=== PATIENT | female | born 1970 | race African-American/Black ===

== ENCOUNTER 2017-05-12 15:22 | Emergency (ER) | payer MEDICAID ==
[~2017-05-12] VITALS: Ht 162.6 cm; Wt 56.7 kg
[2017-05-12 16:52] LABS: Basophils # (auto) 0 uL; Eosinophils # (auto) 0 uL; Hemoglobin 13.4 g/dL (12.2-16.2); Lymphocytes # (auto) 1.8 uL; Neutrophils # (auto) 2.2 uL
[2017-05-12 17:01] LABS: Eosinophils % (auto) 0.9 % (0.0-7.0); Lymphocytes % (auto) 38.1 % (10.0-50.0); Monocytes % (auto) 11.8 % (0.0-12.0); Neutrophils % (auto) 48.2 % (37.0-80.0); White Blood Cell 4.6 10^3/uL (4.4-10.8)
[2017-05-12 17:02] LABS: Albumin 2.9 g/dL (3.4-5.0); BUN/Creatinine Ratio 14.7; Calcium 8.5 mg/dL (8.5-10.1); Hematocrit 43.3 % (36.0-46.0); Mean Corpuscular Hemoglobin 25.5 pg (28.0-32.0); Mean Corpuscular Volume 82.1 fL (80.0-100.0); Monocytes # (auto) 0.5 uL; Nucleated Red Blood Cells % 0.7 %; Platelet Count (auto) 260 10^3/uL (140-450); Potassium 3.9 mmol/L (3.5-5.1); Red Blood Cells 5.27 10^6/uL (4.0-5.20); Red Cell Distribution Width 14.6 % (11.8-14.3)
[2017-05-12 21:55] LABS: Urine Bacteria NONE SEEN /hpf (None Seen); Urine Blood TRACE /uL (Negative); Urine Mucus FEW (None Seen); Urine Specific Gravity 1.024 (1.001-1.035); Urine WBC 4 /hpf (0 - 5)
[2017-05-12 22:41] LABS: Urine Pregnacy Test Negative (Negative)
[2017-05-12 23:02] LABS: Alcohol, Urine < 3.0 mg/dL (0-5); Amphetamine Screen, Urine NEGATIVE (NEGATIVE); Barbiturate Scree,Urine NEGATIVE (NEGATIVE); Benzodiazephine Screen, Urine NEGATIVE (NEGATIVE); Cannabinoid Screen, Urine POSITIVE (NEGATIVE); Cocaine Screen, Urine NEGATIVE (NEGATIVE); Opiate Scree,Urine NEGATIVE (NEGATIVE); Phencyclidine Screen, Urine NEGATIVE (NEGATIVE)
[2017-05-13] MEDS ORDERED: cefTRIAXone 1GM/10ml IVPUSH 10 ML IV ONE (01:15)
[2017-05-13 01:52] VITALS: BP 139/66
== END 2017-05-13 03:08 | disposition home or self-care (01) ==
LOC: ER 15:30
DX: J45.901 Unspecified asthma with (acute) exacerbation (principal); J06.9 Acute upper respiratory infection, unspecified; I11.0 Hypertensive heart disease with heart failure; I50.9 Heart failure, unspecified; F17.210 Nicotine dependence, cigarettes, uncomplicated; F12.10 Cannabis abuse, uncomplicated
CPT/HCPCS: 36415; 71046; 80053; 80307; 81001; 81025; 85025; 93005; 96374

== ENCOUNTER 2019-03-21 19:14 | Emergency (ER) | payer MEDICAID ==
[~2019-03-21] VITALS: Ht 162.6 cm; Wt 67.3 kg
[2019-03-21 19:50] VITALS: BP 132/105
[2019-03-21] MEDS ORDERED: IPRATROPIUM BROM 0.5 MG/2.5ML INH SOL NEB ONE (20:45)
[2019-03-21] MEDS ORDERED: ALBUTEROL SULF 2.5 MG/0.5ML(0.5%) NEB SOLN NEB ONE (20:45)
[2019-03-21 20:51] LABS: Urine Bacteria NONE SEEN /hpf (None Seen); Urine Blood 1+ /uL (Negative); Urine Hyaline Cast MOD /lpf (0 - 2); Urine Mucus FEW (None Seen); Urine Specific Gravity 1.034 (1.001-1.035); Urine WBC 4 /hpf (0 - 5)
== END 2019-03-21 22:32 | disposition home or self-care (01) ==
LOC: ER 19:14
DX: J06.9 Acute upper respiratory infection, unspecified (principal); I11.0 Hypertensive heart disease with heart failure; I50.9 Heart failure, unspecified; R11.2 Nausea with vomiting, unspecified; R19.7 Diarrhea, unspecified; R10.9 Unspecified abdominal pain; F17.210 Nicotine dependence, cigarettes, uncomplicated
CPT/HCPCS: 81001; 94640; 99283; J7611; J7644

== ENCOUNTER 2019-04-01 16:36 | Inpatient (IN) | payer MEDICAID ==
[~2019-04-01] VITALS: Ht 162.6 cm; Wt 68.4 kg
[2019-04-01 17:11] LABS: Urine Bacteria FEW /hpf (None Seen); Urine Blood 1+ /uL (Negative); Urine Mucus MODERATE (None Seen); Urine Specific Gravity 1.031 (1.001-1.035); Urine WBC 18 /hpf (0 - 5)
[2019-04-01 17:30] LABS: Basophils # (auto) 0 uL; Eosinophils # (auto) 0.1 uL; Hemoglobin 10.6 g/dL (12.2-16.2); Monocytes # (auto) 0.3 uL; Monocytes % (auto) 7.2 % (0.0-12.0)
[2019-04-01 17:32] LABS: Eosinophils % (auto) 1.7 % (0.0-7.0); Hematocrit 33.7 % (36.0-46.0); Lymphocytes # (auto) 1.6 uL; Lymphocytes % (auto) 32.7 % (10.0-50.0); Mean Corpuscular Hemoglobin 26.3 pg (28.0-32.0); Mean Corpuscular Hgb Conc. 31.6 g/dL (32.0-36.0); Mean Corpuscular Volume 83.1 fL (80.0-100.0); Neutrophils # (auto) 2.8 uL; Neutrophils % (auto) 57.4 % (37.0-80.0); Nucleated Red Blood Cells % 0.6 %; Platelet Count (auto) 282 10^3/uL (140-450); Red Blood Cells 4.05 10^6/uL (4.0-5.20); Red Cell Distribution Width 17.1 % (11.8-14.3); White Blood Cell 4.9 10^3/uL (4.4-10.8)
[2019-04-01 17:51] LABS: Albumin 2.5 g/dL (3.4-5.0); Calcium 8.4 mg/dL (8.5-10.1); Potassium 3.7 mmol/L (3.5-5.1)
[2019-04-01 17:54] LABS: Bilirubin, Total 3.1 mg/dL (0.2-1.0); Total Protein 6.3 g/dL (6.4-8.2)
[2019-04-01] MEDS ORDERED: SODIUM CHLORIDE 0.9% 1,000 ML IVB ONE (18:25)
[2019-04-01] MEDS ORDERED: ONDANSETRON HCL 4 MG/2 ML VIAL IV ONE (18:30)
[2019-04-01 19:01] LABS: Magnesium 1.7 mg/dL (1.6-2.6)
[2019-04-01 19:06] LABS: INR 1.25 (0.9-1.15); Partial Thromboplastin Time 25.8 sec (23.64-32.05)
[2019-04-01] MEDS: SODIUM CHLORIDE 0.9% 1,000 ML IV SCH (23:31)
[2019-04-01] MEDS ORDERED: DOCUSATE SOD 100 MG CAP PO PRN (23:45)
[2019-04-01] MEDS ORDERED: MORPHINE SULFATE 4 MG/ML SYR/VIAL IV PRN (23:45)
[2019-04-01] MEDS ORDERED: ONDANSETRON HCL 4 MG/2 ML VIAL IV PRN (23:45)
[2019-04-01] MEDS ORDERED: HYDROcodone-ACET 5/325MG TAB PO PRN (23:45)
[2019-04-02 00:06] LABS: Amphetamine Screen, Urine NEGATIVE (NEGATIVE); Barbiturate Scree,Urine NEGATIVE (NEGATIVE); Benzodiazephine Screen, Urine NEGATIVE (NEGATIVE); Cannabinoid Screen, Urine POSITIVE (NEGATIVE); Cocaine Screen, Urine NEGATIVE (NEGATIVE); Opiate Scree,Urine NEGATIVE (NEGATIVE); Phencyclidine Screen, Urine NEGATIVE (NEGATIVE)
[2019-04-02] MEDS ORDERED: FUROSEMIDE 20 MG/2 ML VIAL IV ONE (00:30)
[2019-04-02] MEDS: ACETAMINOPHEN 325 MG TAB PO PRN ×2 (03:00→10:24)
[2019-04-02 06:55] LABS: Basophils # (auto) 0 uL; Eosinophils # (auto) 0.1 uL; Eosinophils % (auto) 1.5 % (0.0-7.0); Monocytes # (auto) 0.4 uL; Red Cell Distribution Width 17.3 % (11.8-14.3); White Blood Cell 5.1 10^3/uL (4.4-10.8)
[2019-04-02 06:57] LABS: Basophils % (auto) 0.5 % (0.0-2.0); Hematocrit 32.8 % (36.0-46.0); Hemoglobin 10.2 g/dL (12.2-16.2); Lymphocytes # (auto) 1.8 uL; Lymphocytes % (auto) 35.7 % (10.0-50.0); Mean Corpuscular Hemoglobin 25.6 pg (28.0-32.0); Mean Corpuscular Hgb Conc. 31.2 g/dL (32.0-36.0); Mean Corpuscular Volume 82.1 fL (80.0-100.0); Monocytes % (auto) 7.8 % (0.0-12.0); Neutrophils # (auto) 2.8 uL; Neutrophils % (auto) 54.5 % (37.0-80.0); Nucleated Red Blood Cells % 0.5 %; Platelet Count (auto) 275 10^3/uL (140-450); Red Blood Cells 3.99 10^6/uL (4.0-5.20)
[2019-04-02 07:34] LABS: Potassium 3.5 mmol/L (3.5-5.1)
[2019-04-02 07:43] LABS: BUN/Creatinine Ratio 17.2; Calcium 8.2 mg/dL (8.5-10.1)
[2019-04-02 09:00] VITALS: BP 128/107
[2019-04-02] MEDS: FUROSEMIDE 40 MG/4 ML VIAL IV SCH ×2 (10:12→22:00)
[2019-04-02] MEDS: cefTRIAXone 1GM/50ML D5W 50 ML IV SCH (10:13)
[2019-04-02] MEDS: SODIUM CHLORIDE 0.9% 1,000 ML IV SCH (10:13)
[2019-04-02] MEDS ORDERED: MULT-242 OR (11:05)
[2019-04-02 13:00] VITALS: BP 105/81
[2019-04-02 17:00] VITALS: BP 107/87
[2019-04-02 18:20] LABS: BUN/Creatinine Ratio 16.5; Calcium 7.9 mg/dL (8.5-10.1); Potassium 3.2 mmol/L (3.5-5.1)
[2019-04-02 20:00] VITALS: BP 133/96
[2019-04-02 22:38] VITALS: BP 120/96
[2019-04-03] MEDS: ACETAMINOPHEN 325 MG TAB PO PRN ×3 (03:02→21:40)
[2019-04-03 05:48] VITALS: BP 127/70
[2019-04-03] MEDS: cefTRIAXone 1GM/50ML D5W 50 ML IV SCH (08:58)
[2019-04-03] MEDS: FUROSEMIDE 40 MG/4 ML VIAL IV SCH ×2 (08:58→21:31)
[2019-04-03 09:00] VITALS: BP 117/92
[2019-04-03 13:00] VITALS: BP 123/89
[2019-04-03 17:00] VITALS: BP 138/99
[2019-04-03] MEDS ORDERED: METOPROLOL SUCCINATE XL 50 MG TAB PO SCH (19:00)
[2019-04-03 22:00] VITALS: BP 116/94
[2019-04-04 05:00] VITALS: BP 97/68
[2019-04-04 07:01] LABS: Basophils # (auto) 0 uL; Basophils % (auto) 0.4 % (0.0-2.0); Eosinophils # (auto) 0.2 uL; Lymphocytes # (auto) 3.2 uL; Mean Corpuscular Hemoglobin 26.3 pg (28.0-32.0); Monocytes # (auto) 0.3 uL; Nucleated Red Blood Cells % 0.4 %; Red Cell Distribution Width 17.4 % (11.8-14.3)
[2019-04-04 07:03] LABS: Eosinophils % (auto) 2.3 % (0.0-7.0); Hematocrit 33.5 % (36.0-46.0); Hemoglobin 10.7 g/dL (12.2-16.2); Lymphocytes % (auto) 46.8 % (10.0-50.0); Mean Corpuscular Hgb Conc. 31.9 g/dL (32.0-36.0); Mean Corpuscular Volume 82.5 fL (80.0-100.0); Monocytes % (auto) 4.3 % (0.0-12.0); Neutrophils # (auto) 3.2 uL; Neutrophils % (auto) 46.2 % (37.0-80.0); Platelet Count (auto) 265 10^3/uL (140-450); Red Blood Cells 4.05 10^6/uL (4.0-5.20); White Blood Cell 6.9 10^3/uL (4.4-10.8)
[2019-04-04 07:07] LABS: Calcium 7.9 mg/dL (8.5-10.1); Magnesium 1.6 mg/dL (1.6-2.6); Potassium 3.1 mmol/L (3.5-5.1)
[2019-04-04 07:10] LABS: BUN/Creatinine Ratio 19.4
[2019-04-04 09:00] VITALS: BP 100/76
[2019-04-04] MEDS ORDERED: POTASSIUM CHL 20 Meq TABLET PO ONE (09:30)
[2019-04-04] MEDS: FUROSEMIDE 40 MG/4 ML VIAL IV SCH (10:09)
[2019-04-04] MEDS: cefTRIAXone 1GM/50ML D5W 50 ML IV SCH (10:10)
[2019-04-04 13:00] VITALS: BP 110/83
== END 2019-04-04 23:13 | disposition home or self-care (01) | DRG 194 ==
LOC: ER 16:36 → OVERFLOW 16:37 → CENTRAL 04-02 08:31
PROVIDERS: ADMIT Hospitalist; ATTEND Internal Medicine
DX: I13.0 Hypertensive heart and chronic kidney disease with heart failure and stage 1 through stage 4 chronic kidney disease, or unspecified chronic kidney disease (principal); N17.9 Acute kidney failure, unspecified; E88.09 Other disorders of plasma-protein metabolism, not elsewhere classified; D50.8 Other iron deficiency anemias; F32.9 Major depressive disorder, single episode, unspecified; F17.210 Nicotine dependence, cigarettes, uncomplicated; I50.23 Acute on chronic systolic (congestive) heart failure; K52.9 Noninfective gastroenteritis and colitis, unspecified; N39.0 Urinary tract infection, site not specified; N18.9 Chronic kidney disease, unspecified; F41.9 Anxiety disorder, unspecified; Z85.038 Personal history of other malignant neoplasm of large intestine; Z83.3 Family history of diabetes mellitus; Z82.49 Family history of ischemic heart disease and other diseases of the circulatory system
CPT/HCPCS: 36415; 74176; 80048; 80053; 80061; 80307; 81001; 82150; 83690; 83735; 83880; 85025; 85610; 85730; 87081; 93306; 96374; G0378; J0696